=== PATIENT | male | born 1990 | race Native Hawaiian/Other Pacific Islander ===

== ENCOUNTER 2022-01-21 21:21 | Emergency (ER) | payer OTHER ==
[~2022-01-21] VITALS: Ht 160 cm; Wt 63.5 kg
[2022-01-21 22:01] LABS: PLATELET COUNT 252 K/uL (142-355)
[2022-01-21 22:10] LABS: POTASSIUM 3.9 mmol/L (3.6-5.2)
[2022-01-21 22:23] LABS: PARTIAL THROMBOPLASTIN TIME 28.4 SECONDS (24.5-33.6)
[2022-01-21 23:00] VITALS: BP 105/53; TEMP 98.2
== END 2022-01-21 23:00 | disposition home or self-care (01) ==
LOC: ED 21:21
PROVIDERS: Hospitalist
DX: S93.492A Sprain of other ligament of left ankle, initial encounter (principal); S39.012A Strain of muscle, fascia and tendon of lower back, initial encounter; W23.1XXA Caught, crushed, jammed, or pinched between stationary objects, initial encounter; W20.8XXA Other cause of strike by thrown, projected or falling object, initial encounter; Y92.89 Other specified places as the place of occurrence of the external cause
CPT/HCPCS: 36415; 80048; 80320; 85027; 85610; 85730; 96375; 99283; J1885; Q9963

== ENCOUNTER 2022-06-01 19:31 | Emergency (ER) | payer OTHER ==
[~2022-06-01] VITALS: Ht 160 cm; Wt 59.0 kg
[2022-06-01 20:35] VITALS: BP 129/77; TEMP 97.9
== END 2022-06-01 20:40 | disposition home or self-care (01) ==
LOC: ED 19:31
DX: K02.9 Dental caries, unspecified (principal); R68.84 Jaw pain
CPT/HCPCS: 96372; 99283; J0696; J1885

== ENCOUNTER 2022-11-12 16:33 | Emergency (ER) | payer OTHER ==
[~2022-11-12] VITALS: Ht 160 cm; Wt 59.0 kg
[2022-11-12 16:50] VITALS: BP 125/69; TEMP 99.5
== END 2022-11-12 18:35 | disposition home or self-care (01) ==
LOC: ED 16:33
DX: J20.9 Acute bronchitis, unspecified (principal); U07.1 COVID-19
CPT/HCPCS: 87502; 87635; 87651; 99283; J1885; U0003